=== PATIENT | male | born 1975 | race Caucasian/White ===

== ENCOUNTER 2017-01-10 08:15 | Emergency (ER) | payer OTHER ==
[~2017-01-10] VITALS: Ht 182.9 cm; Wt 93.0 kg
[2017-01-10] MEDS ORDERED: BISO5TAB5 PO (08:28)
[2017-01-10] MEDS ORDERED: OMEP40CA2 PO (08:28)
[2017-01-10] MEDS ORDERED: ASPIRIN 81 MG CHEW TABLET PO ONE (09:15)
[2017-01-10] MEDS ORDERED: PANTOPRAZOLE 40MG INJ (PROTONIX) (C9113) IV ONE (09:15)
[2017-01-10 09:40] LABS: BASO % 0.3 % (0.0-1.0); EOS # 0.1 K/mm3 (0.0-0.50); EOS % 1.4 % (0.0-3.0); LARGE UNSTAINED CELL # 0.1 K/mm3 (0.0-0.4); LARGE UNSTAINED CELL % 2.1 % (0.0-4.0); LYMPH # 1.5 K/mm3 (1.5-4.5); LYMPH % 34.7 % (24.0-44.0); MEAN CORPUSCULAR HEMOGLOBIN 30.1 pg (27.0-33.0); MEAN CORPUSCULAR HGB CONC 33.8 g/dl (32.0-36.5); MEAN CORPUSCULAR VOLUME 89.2 fl (80.0-96.0); MONO # 0.2 K/mm3 (0.0-0.8); MONO % 3.6 % (0.0-5.0); NEUTROPHILS # 2.4 K/mm3 (1.8-7.7); NEUTROPHILS % 57.9 % (36.0-66.0); PLATELET COUNT, AUTOMATED 139 k/mm3 (150-450); RED CELL DISTRIBUTION WIDTH 12.1 % (11.5-14.5); WHITE BLOOD COUNT 4.1 K/mm3 (4.0-10.0)
--- NOTE | 2017-01-10 09:40 | REP ---
AP PORTABLE CHEST: 01/10/2017. Clinical history: Chest x-ray 12/31/2016, 07/28/2017. Clinical history: Chest pain. Findings: The lungs are well inflated. The CP angles are sharply defined. No lateral pleural thickening, apical scarring or pneumothorax. There is no dense consolidation or parenchymal lung mass. No pulmonary nodule visible. The heart is not enlarged. There is no chamber enlargement, vascular redistribution or pulmonary edema. The aorta contour is unremarkable. Airway intact. No mediastinal or hilar abnormality. Airway midline. The bony thorax shows no compression deformity of focal lesion. No free air under the diaphragm. Impression: 1. No acute cardiopulmonary disease. Stable chest from multiple prior studies. Signed by Maximiliano Mcfadden MD 01/10/2017 10:54 A
[2017-01-10 09:53] LABS: ALBUMIN 4.2 GM/DL (3.2-5.2); ALKALINE PHOSPHATASE 80 U/L (45-117); ALT/SGPT 19 U/L (12-78); ANION GAP 7 MEQ/L (8-16); AST/SGOT 18 U/L (15-37); BILIRUBIN,DIRECT 0.2 MG/DL (0.0-0.2); BILIRUBIN,TOTAL 0.8 MG/DL (0.2-1.0); BLOOD UREA NITROGEN 9 MG/DL (7-18); CALCIUM LEVEL 8.3 MG/DL (8.5-10.1); CARBON DIOXIDE LEVEL 29 MEQ/L (21-32); CHLORIDE LEVEL 106 MEQ/L (98-107); CREATININE FOR GFR 0.99 MG/DL (0.70-1.30); GLOMERULAR FILTRATION RATE > 60.0 (>60); GLUCOSE, FASTING 96 MG/DL (70-105); POTASSIUM SERUM 4.1 MEQ/L (3.5-5.1); SODIUM LEVEL 142 MEQ/L (136-145); TOTAL PROTEIN 7.2 GM/DL (6.4-8.2)
[2017-01-10 14:24] VITALS: BP 154/87
--- NOTE | 2017-01-10 21:09 | ECGEPIP ---
Stationary ECG Study [facility] - ED Test Date: 2017-01-10 Pat Name: JAVI RAMOS Department: Room: - Gender: M Ceo Na: JT : 1975 Requested By: Hero Perdomo Order Number: [id number] Reading MD: Philly Temple Measurements Intervals [place] Rate: 58 P: 39 CA: 183 QRS: -12 QRSD: 104 T: 25 QT: 431 QTc: 427 Interpretive Statements SINUS BRADYCARDIA LOW VOLTAGE LIMB NO PRIOR FOR COMPARISON Electronically Signed On 01-10-2017 21:09:37 EDT by Philly Temple
--- NOTE | 2017-01-10 21:13 | ECGEPIP ---
Stationary ECG Study [facility] - ED Test Date: 2017-01-10 Pat Name: JAVI RAMOS Department: Room: - Gender: M Outcomes Specialist: ericka : 1975 Requested By: Hero Perdomo Order Number: [id number] Reading MD: Philly Temple Measurements Intervals [place] Rate: 69 P: 52 [place]: 172 QRS: -3 QRSD: 103 T: 18 QT: 405 QTc: 434 Interpretive Statements SINUS RHYTHM SIMILAR 9:17 Electronically Signed On 01-10-2017 21:12:51 EDT by Philly Temple
== END 2017-01-10 14:26 | disposition home or self-care (01) ==
LOC: M ED 09:11
DX: R07.89 Other chest pain (principal); R10.13 Epigastric pain; I10 Essential (primary) hypertension; F41.9 Anxiety disorder, unspecified
CPT/HCPCS: 71010; 80048; 80076; 82550; 82553; 83690; 84443; 85025; 93005; 93041; 94760; 96374; 99285; C9113

== ENCOUNTER → 2017-02-23 | Outpatient (CLI) | payer OTHER ==
[~2017-02-23] VITALS: Ht 182.9 cm; Wt 92.5 kg
[~2017-02-23] MED LIST: BISO5TAB5 PO; LIDOCAINE 2% INJ 100 MG/5 ML SDV (FOR ANES.) As Ordered ONE; LR 1,000 ML IV SCH; OMEP40CA2 PO; ONE1TAB2 PO; PROPOFOL 200 MG/20 ML VIAL As Ordered ONE
--- NOTE | 2017-02-23 14:52 | ROOR ---
Patient Name: Akil Romero Procedure Date: 02/23/2017 2:25 PM Date of : 1975 Age: 41 Room: [facility] Gender: Male Note Status: Finalized Procedure: Upper GI endoscopy Indications: Epigastric abdominal pain, atypical chest pain Providers: Michael Hager MD Referring MD: HANSA LAMBERT MD Requesting Provider: Medicines: Monitored Anesthesia Care Complications: No immediate complications. Procedure: Pre-Anesthesia Assessment: - Prior to the procedure, a History and Physical was performed, and patient medications and allergies were reviewed. The patient is competent. The risks and benefits of the procedure and the sedation options and risks were discussed with the patient. All questions were answered and informed consent was obtained. Patient identification and proposed procedure were verified by the physician, the nurse and the anesthesiologist in the procedure room. Mental Status Examination: alert and oriented. Airway Examination: normal oropharyngeal airway and neck mobility. CV Examination: regular rate and rhythm. Prophylactic Antibiotics: The patient does not require prophylactic antibiotics. Prior Anticoagulants: The patient has taken no previous anticoagulant or antiplatelet agents. ASA Grade Assessment: II - A patient with mild systemic disease. After reviewing the risks and benefits, the patient was deemed in satisfactory condition to undergo the procedure. The anesthesia plan was to use monitored anesthesia care (MAC). Immediately prior to administration of medications, the patient was re-assessed for adequacy to receive sedatives. The heart rate, respiratory rate, oxygen saturations, blood pressure, adequacy of pulmonary ventilation, and response to care were monitored throughout the procedure. The physical status of the patient was re-assessed after the procedure. The Endoscope was introduced through the mouth, and advanced to the second part of duodenum. The upper GI endoscopy was accomplished without difficulty. The patient tolerated the procedure well. Findings: The examined esophagus was normal. The Z-line was irregular and was found to have a slight irregularity suggesting healed area of erosion. The entire examined stomach was normal. Biopsies were taken with a cold forceps for Helicobacter pylori testing. The examined duodenum was normal. Impression: - Normal esophagus. - Z-line irregular, to have a slight irregularity suggesting healed area of erosion. - Normal stomach. Biopsied. - Normal examined duodenum. Recommendation: - Discharge patient to home. - Resume previous diet. - Continue present medications. - Await pathology results. - Telephone endoscopist for pathology results in 7 weeks. Michael Hager MD 02/23/2017 2:52:16 PM Number of Addenda: 0 Note Initiated On: 02/23/2017 2:25 PM Estimated Blood Loss: Estimated blood loss was minimal.
[2017-02-23 15:20] VITALS: BP 129/79
== END | disposition home or self-care (01) ==
LOC: M OPP 13:23
PROVIDERS: ATTEND Surgery
DX: R10.13 Epigastric pain (principal); R07.89 Other chest pain; K22.8 Other specified diseases of esophagus; I10 Essential (primary) hypertension; R12 Heartburn; F41.9 Anxiety disorder, unspecified; Z79.899 Other long term (current) drug therapy